=== PATIENT | female | born 1960 | race Caucasian/White ===

== ENCOUNTER → 2016-12-30 | Outpatient (CLI) | payer BC ==
--- NOTE | 2016-12-31 08:48 | MM ---
Reason for exam: screening (asymptomatic). Last mammogram was performed 2 years and 1 month ago. History: Family history of breast cancer in paternal cousin at age 32. Physical Findings: A clinical breast exam by your physician is recommended on an annual basis and results should be correlated with mammographic findings. MG Screening Mammo w CAD Bilateral CC and MLO view(s) were taken. Prior study comparison: November 23, 2014, bilateral MG screening mammo w CAD. July 26, 2012, CAD bilateral diagnostic mammogram. The breast tissue is heterogeneously dense. This may lower the sensitivity of mammography. Finding: There are typically benign round calcifications in both breasts. There is no discrete abnormality. ASSESSMENT: Benign, BI-RAD 2 RECOMMENDATION: Routine screening mammogram of both breasts in 1 year.
== END | disposition home or self-care (01) ==
LOC: RADMAMWWP 13:43
PROVIDERS: ATTEND Family Medicine
DX: Z12.31 Encounter for screening mammogram for malignant neoplasm of breast (principal)

== ENCOUNTER → 2017-12-23 | Outpatient (CLI) | payer BC ==
--- NOTE | 2017-12-23 12:57 | US ---
EXAMINATION TYPE: US gallbladder DATE OF EXAM: 12/23/2017 COMPARISON: NONE CLINICAL HISTORY: 57-year-old female K82.9 Disease of Gallbladder. RUQ pain and N/V x 3 weeks, gets w orse after eating TECHNIQUE: Multiple sonographic images of the right upper quadrant are obtained. FINDINGS: COURT OPERATIONS CLERK NOTES: Difficult and suboptimal study due to patient body habitus EXAM MEASUREMENTS: Liver Length: 16.4 cm Gallbladder Wall: 0.2 cm CBD: 0.3 cm Right Kidney: 10.4 x 5.7 x 5.2 cm Pancreas: Suboptimal visualization of the pancreatic tail secondary to overlying bowel gas Liver: wnl Gallbladder: wnl Evidence for sonographic Garcia's sign: yes CBD: wnl Right Kidney: wnl IMPRESSION: Unremarkable sonographic examination of the right upper quadrant. However, sonographic Garcia sign is reported positive. This may reflect referred pain. If further imaging evaluation of the gallbladder is desired, HIDA scan with ejection fraction can be considered.
== END | disposition home or self-care (01) ==
LOC: RADUSWWP 11:43
PROVIDERS: ATTEND Family Medicine
DX: K82.9 Disease of gallbladder, unspecified (principal)
CPT/HCPCS: 76705

== ENCOUNTER → 2018-01-05 | Outpatient (CLI) | payer BC ==
--- NOTE | 2018-01-05 10:37 | NM ---
Nuclear medicine hepatobiliary scan. HISTORY: Pain. DOSAGE: The patient received 8 ounces of ensure plus and 5.2 mCi of Technetium 99m Choletec. FINDINGS: There is normal hepatic extraction. The gallbladder is seen by 20 minutes. There is bilia ry to bowel clearance by 50 minutes. Ejection fraction is 72%. IMPRESSION: 1. Normal hepatobiliary exam
== END | disposition home or self-care (01) ==
LOC: RADNMMAIN 07:10
PROVIDERS: ATTEND Family Medicine
DX: K82.9 Disease of gallbladder, unspecified (principal); R10.84 Generalized abdominal pain
CPT/HCPCS: 78226; A9537

== ENCOUNTER → 2018-01-14 | Outpatient (CLI) | payer BC ==
--- NOTE | 2018-01-18 08:50 | MM ---
Reason for exam: screening (asymptomatic). Last mammogram was performed 1 year ago. History: Patient is postmenopausal. Family history of breast cancer in paternal cousin at age 32. Physical Findings: A clinical breast exam by your physician is recommended on an annual basis and results should be correlated with mammographic findings. MG 3D Screening Mammo W/Cad Bilateral CC and MLO view(s) were taken. Technologist: Iris Pulliam RT (R)(M) Prior study comparison: December 30, 2016, bilateral MG screening mammo w CAD. November 23, 2014, bilateral MG screening mammo w CAD. There are scattered fibroglandular densities. Focal asymmetry right upper MLO, stable. No significant changes when compared with prior studies. ASSESSMENT: Benign, BI-RAD 2 RECOMMENDATION: Routine screening mammogram of both breasts in 1 year.
== END | disposition home or self-care (01) ==
LOC: RADMAMWWP 08:07
PROVIDERS: ATTEND Family Medicine
DX: Z12.31 Encounter for screening mammogram for malignant neoplasm of breast (principal)
CPT/HCPCS: 77063; 77067

== ENCOUNTER → 2018-08-14 | Outpatient (CLI) | payer BC ==
[2018-08-14 08:43] LABS: Basophils # (A) 0.1 k/uL (0-0.2); Basophils % (A) 1 %; Eosinophils # (A) 0.2 k/uL (0-0.7); Eosinophils % (A) 3 %; HCT 41.2 % (34.0-46.0); HGB 13.5 gm/dL (11.4-16.0); Lymphocytes % (A) 27 %; MCH 27.9 pg (25.0-35.0); MCHC 32.7 g/dL (31.0-37.0); MCV 85.3 fL (80.0-100.0); Mean Platelet Volume 7.7; Monocytes # (A) 0.4 k/uL (0-1.0); Monocytes % (A) 6 %; Neutrophils # (A) 4.5 k/uL (1.3-7.7); Neutrophils % (A) 62 %; Platelet Count 284 k/uL (150-450); RBC 4.83 m/uL (3.80-5.40); RDW 14.6 % (11.5-15.5); WBC 7.4 k/uL (3.8-10.6)
[2018-08-14 17:59] LABS: LDL Cholesterol,Calculated 143.6 mg/dL (0.0-131.0); VLDL Calculation 23.4 mg/dL (5.00-40.00)
[2018-08-14 18:01] LABS: Vitamin D 25 Hydroxy 17.9 ng/mL (30.0-100.0)
[2018-08-14 18:12] LABS: Iron Saturation 20.7 (12.00-45.00)
== END | disposition home or self-care (01) ==
LOC: LABWHC1 08:28
PROVIDERS: ATTEND Physician Assistant Medical
DX: Z00.01 Encounter for general adult medical examination with abnormal findings (principal); E55.9 Vitamin D deficiency, unspecified; E78.2 Mixed hyperlipidemia; R79.89 Other specified abnormal findings of blood chemistry
CPT/HCPCS: 36415; 80061; 82306; 82728; 83540; 83550; 85025

== ENCOUNTER → 2020-02-27 | Outpatient (CLI) | payer BC ==
--- NOTE | 2020-02-27 22:35 | MR ---
EXAMINATION TYPE: MR knee RT wo con DATE OF EXAM: 02/27/2020 COMPARISON: Outside bilateral knee x-ray November 23, 2019. HISTORY: Right knee pain with locking and swelling for a few months. TECHNIQUE: Multiplanar, multisequence images of the knee is performed without IV contrast. FINDINGS: Exam slightly suboptimal due to patient's large body habitus. MEDIAL MENISCUS: Medial extrusion medial meniscus images. Some increased linear signal in the anterio r and posterior horns is present. Anterior aspect posterior horn shows irregular signal and fraying e xtending to articular surface sagittal image 10. Corresponding coronal image 21 shows extension of th e regular signal to superior and inferior articular surfaces. LATERAL MENISCUS: Anterior and posterior horns are intact without tear. CRUCIATE LIGAMENTS: The anterior and posterior cruciate ligaments are intact and unremarkable. COLLATERAL LIGAMENTS: The medial collateral ligament and lateral collateral ligament complex are inta ct and unremarkable. EXTENSOR MECHANISM: Visualized quadriceps and patellar tendons are intact. EFFUSION: Small suprapatellar joint effusion. POPLITEAL CYST: No popliteal/chery cyst. TRICOMPARTMENT SPACES: Mild tricompartment joint space loss with mild central spurring. CARTILAGE: Some chondromalacia patella with thinning of articular cartilage along the posterior rangel lar pole. BONE MARROW SIGNAL: No focal abnormal marrow signal is appreciated. OTHER: No additional significant abnormality is appreciated. IMPRESSION: 1. Complex full-thickness tear central aspect posterior horn medial meniscus likely extending into johanna dy. 2. Intrasubstance tear anterior horn of medial meniscus. 3. [id number] tricompartmental degenerative changes as detailed above. 4. Small suprapatellar joint effusion.
== END | disposition home or self-care (01) ==
LOC: RADMRIMAIN 17:58
PROVIDERS: ATTEND Orthopaedic Surgery
DX: S83.231A Complex tear of medial meniscus, current injury, right knee, initial encounter (principal); S83.241A Other tear of medial meniscus, current injury, right knee, initial encounter; M17.11 Unilateral primary osteoarthritis, right knee

== ENCOUNTER → 2020-03-08 | Outpatient (CLI) | payer BC ==
[2020-03-08 10:41] LABS: Basophils # (A) 0.1 k/uL (0-0.2); Basophils % (A) 1 %; Eosinophils # (A) 0.2 k/uL (0-0.7); Eosinophils % (A) 2 %; HCT 41.6 % (34.0-46.0); HGB 12.9 gm/dL (11.4-16.0); Lymphocytes # (A) 2.1 k/uL (1.0-4.8); Lymphocytes % (A) 24 %; MCH 27.1 pg (25.0-35.0); MCHC 31.1 g/dL (31.0-37.0); MCV 87.1 fL (80.0-100.0); Monocytes # (A) 0.5 k/uL (0-1.0); Monocytes % (A) 5 %; Neutrophils # (A) 5.8 k/uL (1.3-7.7); Neutrophils % (A) 66 %; Platelet Count 290 k/uL (150-450); RBC 4.77 m/uL (3.80-5.40); RDW 13.9 % (11.5-15.5); WBC 8.7 k/uL (3.8-10.6)
[2020-03-08 10:52] LABS: Potassium 4.6 mmol/L (3.5-5.1)
== END | disposition home or self-care (01) ==
LOC: LABPAT 09:32
PROVIDERS: ATTEND Orthopaedic Surgery
DX: M23.91 Unspecified internal derangement of right knee (principal)
CPT/HCPCS: 36415; 80051; 85025; 93005

== ENCOUNTER 2020-03-22 12:45 | Day surgery (SDC) | payer BC ==
[2020-03-20 09:44] VITALS: BMI 51.5
--- NOTE | 2020-03-21 14:30 | HP ---
HISTORY AND PHYSICAL DATE OF SURGERY: 03/22/2020 Bertha Gayle is a 59-year-old patient seen with progressive right knee pain. We discussed options for treatment. She elected to proceed with right knee arthroscopy. Consent regarding the procedure was obtained. PAST MEDICAL HISTORY: Hypertension. PAST SURGICAL HISTORY: Tubal ligation. DAILY MEDICATIONS: Losartan, diazepam. PAST MEDICAL HISTORY: Hyperlipidemia, hypertension. ALLERGIES: None. SOCIAL HISTORY: Smokes 1/2 pack cigarettes daily. PHYSICAL EVALUATION OF THE RIGHT SHOULDER: Range of motion is 0-120. There is a mild effusion. Tenderness along the medial joint line positive medial Sherri's. There is some crepitus along the medial compartment. Range of motion. Ligaments are stable. Hip rotation without pain. Her distal neurovascular exam is intact. . RIGHT KNEE RADIOGRAPHS: Revealed mild osteoarthritic changes. Right knee MRI revealed a complex medial meniscal tear, osteoarthritis and joint effusion. IMPRESSION: 1. Internal derangement, right knee with medial meniscal tear. 2. Right knee osteoarthritis. 3. Hypertension. 4. Tobacco use. PLAN: Right knee arthroscopy with partial meniscectomy, partial synovectomy and debridement. MMODL / IJN: [id number] /
[~2020-03-22 12:45] MED LIST: DEXAMETHASONE SOD PHOSPHATE 10 MG/ML 1 ML VIAL IV ONE; LACTATED RINGERS 1,000 ML IV SCH; LIDOCAINE 1% (10MG/ML) FOR IV START INTRADERMA PRN; ceFAZolin 3 GM in SODIUM CHLORIDE 0.9% 100 ML IVPB ONE
[2020-03-22] MEDS ORDERED: ONDANSETRON 4 MG/2 ML VIAL ONE (13:10)
[2020-03-22] MEDS ORDERED: MIDAZOLAM 2 MG/2 ML VIAL IVP ONE (13:28)
[2020-03-22] MEDS ORDERED: MIDAZOLAM 2 MG/2 ML VIAL ONE (14:49)
[2020-03-22] MEDS ORDERED: LIDOCAINE 1% INJ 10MG/ML (20 ML MDV) ONE (14:49)
[2020-03-22] MEDS ORDERED: SUCCINYLCHOLINE CHLORIDE 100 MG/5 ML SYR IV ONE (14:49)
[2020-03-22] MEDS ORDERED: PROPOFOL 10 MG/ML 20 ML VIAL IV ONE (14:49)
[2020-03-22] MEDS ORDERED: fentaNYL (PF) 50 MCG/ML 2 ML AMP ONE (14:49)
[2020-03-22] MEDS ORDERED: BUPIVACAINE (PF) 0.25% 30 ML VIAL INTRAARTIC ONE (15:13)
--- NOTE | 2020-03-22 15:43 | P.OP ---
Date of Procedure: 03/22/20 Preoperative Diagnosis: Internal derangement right knee Postoperative Diagnosis: 1. Tear medial meniscus right knee 2. Grade 2 chondromalacia medial femoral condyle right knee 3. Grade 2/3 chondromalacia patellofemoral joint right knee 4. Reactive synovitis medial, lateral and suprapatellar compartments right knee Procedure(s) Performed: 1. Arthroscopic partial medial meniscectomy right knee 2. Arthroscopic chondroplasty medial femoral condyle right knee 3. Arthroscopic chondroplasty patellofemoral joint right knee 4. Arthroscopic partial synovectomy medial, lateral and suprapatellar compartments right knee Anesthesia: ROBERTO, local Surgeon: Parth Magdaleno Estimated Blood Loss (ml): 7 Pathology: none sent Condition: stable Disposition: PACU Indications for Procedure: 59-year-old patient seen with progressive right knee pain. After treatment options were discussed with her, she elected to proceed with arthroscopy. Operative Findings: See description of procedure Description of Procedure: Patient was taken to the operative suite. Patient underwent a general anesthetic by the department of anesthesia. Patient was given preoperative antibiotics. The right lower extremity was placed in a well-padded arthroscopic leg caputo. The right leg was prepped and draped in the normal sterile orthopedic fashion. A lateral parapatellar and suprapatellar incision was made. Trochars were inserted. Arthroscopy was initiated. Suprapatellar pouch revealed diffuse thick reactive synovitis. The patellofemoral joint appeared to articulate congruently. There was grade 2/3 chondromalacia of the patella as well as the femoral sulcus. The femoral sulcus appeared be more grade 3 chondromalacia diffusely.. The scope was guided into the medial gutter. No loose bodies or plica were identified. The scope was then guided into the medial compartment. A medial parapatellar incision was made. Trocar inserted followed by probe. There was a complex tear involving the posterior horn medial meniscus. There were grade 2 chondromalacia changes of the medial femoral condyle with some osteochondral flap tears present. There was thick reactive synovitis anteriorly. I performed a partial medial meniscectomy. I performed a chondroplasty of the medial femoral condyle. I performed a partial synovectomy decompressing reactive synovitis. The residual meniscus was probed and found to be stable. The residual osteochondral surface of the medial femoral condyle was stable. There was good decompression of the synovitis. Scope and probe were then guided into the intercondylar notch. Cruciates were identified, probed and found to be stable. The scope and probe were then guided into lateral compartment. Lateral meniscus was probed and found to be stable. There was no significant chondromalacia involving lateral compartment. There was some reactive synovitis anteriorly. A motorize shaver was introduced and a partial synovectomy was performed. There was good decompression of synovitis. The scope was in guided back into the suprapatellar compartment. I introduced a motorized shaver into the suprapatellar compartment. I debrided some piecemeal fragments of meniscus I encountered. I performed a chondroplasty of the patellofemoral joint getting down to stable osteochondral tissue. I performed a partial synovectomy decompressing reactive synovitis. The shaver was removed. The residual osteochondral surface of the patellofemoral joint was stable. There was again grade 2/3 chondromalacia changes there. There was good decompression of synovitis. I now took one more look around the entire knee, no residual debris. Instruments were now removed from the joint. The joint was infiltrated with .25% Marcaine. Steri-Strips were applied to the portal sites. Sterile dressings were applied. The patient was placed into a YOLY hose. No tourniquet was utilized. The patient was awakened, transferred to a bed and taken to recovery stable satisfactory condition.
[2020-03-22 15:48] VITALS: TEMP 98
[2020-03-22] MEDS ORDERED: HYDROmorphone 0.5 MG/0.5 ML SYRINGE IVP ONE (15:55)
[2020-03-22 16:00] VITALS: RESP 16
[2020-03-22 17:00] VITALS: BP 138/83; PULSE 66
== END 2020-03-22 17:15 | disposition home or self-care (01) ==
LOC: OR 12:45
PROVIDERS: ATTEND Orthopaedic Surgery
DX: M23.221 Derangement of posterior horn of medial meniscus due to old tear or injury, right knee (principal); M17.11 Unilateral primary osteoarthritis, right knee; M94.261 Chondromalacia, right knee; M65.861 Other synovitis and tenosynovitis, right lower leg; I10 Essential (primary) hypertension; E78.5 Hyperlipidemia, unspecified; F17.210 Nicotine dependence, cigarettes, uncomplicated; E66.01 Morbid (severe) obesity due to excess calories; Z79.899 Other long term (current) drug therapy; Z98.51 Tubal ligation status; Z68.43 Body mass index [BMI] 50.0-59.9, adult
CPT/HCPCS: 29881; J2250; J1100; J0690; J2405; J2001; J3010; J0330; J2704; J1170

== ENCOUNTER → 2020-12-06 | Outpatient (CLI) | payer BC ==
--- NOTE | 2020-12-10 08:55 | MM ---
Reason for exam: screening (asymptomatic). Last mammogram was performed 2 years and 11 months ago. History: Patient is postmenopausal. Family history of breast cancer in paternal cousin at age 32. Physical Findings: A clinical breast exam by your physician is recommended on an annual basis and results should be correlated with mammographic findings. MG Screening Mammo w CAD Bilateral CC and MLO view(s) were taken. Prior study comparison: January 14, 2018, bilateral MG 3d screening mammo w/cad. December 30, 2016, bilateral MG screening mammo w CAD. There are scattered fibroglandular densities. Finding: There are stable typically benign grouped/clustered calcifications in the upper outer quadrant, posterior middle position. Magnification view to evaluate. No significant changes in finding since January 14, 2018. ASSESSMENT: Incomplete: need additional imaging evaluation, BI-RAD 0 RECOMMENDATION: Special view mammogram of the left breast. [facility] will attempt to contact patient to return for supplemental views.
== END | disposition home or self-care (01) ==
LOC: RADMAMWWP 14:33
PROVIDERS: ATTEND Family Medicine
DX: Z12.31 Encounter for screening mammogram for malignant neoplasm of breast (principal); Z78.0 Asymptomatic menopausal state; Z80.3 Family history of malignant neoplasm of breast
CPT/HCPCS: 77067

== ENCOUNTER → 2020-12-11 | Outpatient (CLI) | payer BC ==
--- NOTE | 2020-12-11 09:48 | MM ---
Reason for exam: additional evaluation requested from abnormal screening. Last mammogram was performed less than 1 month ago. History: Patient is postmenopausal. Family history of breast cancer in paternal cousin at age 32. Physical Findings: Nurse did not find any significant physical abnormalities on exam. MG Work Up Mamm w CAD LT CC with magnification, LM with magnification, and LM view(s) were taken of the left breast. Prior study comparison: December 06, 2020, bilateral MG screening mammo w CAD. January 14, 2018, bilateral MG 3d screening mammo w/cad. Faint amorphous punctate calcifications 2 o'clock left breast 1.1cm from nipple, suspicious, best seen on CC. These results were verbally communicated with the patient and result sheet given to the patient on 12/11/20. ASSESSMENT: Suspicious, BI-RAD 4 RECOMMENDATION: Stereotactic core biopsy of the left breast. Called Dr. Montana's office with mammographic findings and has scheduled an appointment for the patient for 12/13/20 at 11:[address] Duval. PRELIMINARY REPORT CALLED AND FAXED TO DR. DUVAL ON 12/11/20.
== END | disposition home or self-care (01) ==
LOC: RADMAMWWP 08:09
PROVIDERS: ATTEND Family Medicine
DX: R92.8 Other abnormal and inconclusive findings on diagnostic imaging of breast (principal); Z78.0 Asymptomatic menopausal state; Z80.3 Family history of malignant neoplasm of breast
CPT/HCPCS: 77065

== ENCOUNTER → 2020-12-31 | Day surgery (SDC) | payer BC ==
[2020-12-31 07:15] VITALS: BP 120/79; PULSE 78; RESP 16; TEMP 97.8
--- NOTE | 2020-12-31 08:52 | P.PCN ---
Date of Procedure: 12/31/20 Preoperative Diagnosis: Microcalcifications left breast Postoperative Diagnosis: Microcalcifications left breast Procedure(s) Performed: Left stereotactic breast biopsy with marker placement Anesthesia: local Surgeon: Kathrine Duval Pathology: other Condition: stable Disposition: other (discharge) Indications for Procedure: Abnormal mammogram Description of Procedure: Patient presented with a vague area of microcalcification seen on her mammogram. She's taken to the stereotactic suite where the area of concern as marked by the radiologist. The breasts prep. Local anesthetic was instilled in the skin and breast tissue. The needle is advanced the appropriate depth. Pre-fire films were obtained. The needle was then fired and post-fire films were available. This showed the needle to be in good position. Multiple vacuum- assisted automated cores were then obtained. Specimen mammography showed multiple calcifications present. The tissue marker is then placed and the needle was withdrawn. There was noted to be some oozing from the skin which appeared to be venous. This was controlled with a 3-0 Vicryl mattress suture. A dressing was applied. She tolerated the procedure without difficulty and will be seen in the office for pathology report
--- NOTE | 2020-12-31 09:46 | MM ---
EXAMINATION TYPE: MG stereo VAD BX LT DATE OF EXAM: 12/31/2020 COMPARISON: 12/11/2020 CLINICAL HISTORY: Left breast calcifications TECHNIQUE: Stereotactic guided core biopsy of left breast. FINDINGS: The procedure of stereotactic guided core biopsy was explained to the patient. By report the benefits, alternatives, and risks were discussed. An informed consent was then obtained. The shortness pathway for biopsy was chosen. Shortness pathway was above approach. I performed the localization, then surgeon, Dr. Duval performed the remainder of the procedure. No radiologist was present for the procedure. A vacuum assisted biopsy gun was used to obtain multiple core samples. By report, the patient tolerated the procedure well without any immediate complication. The patient was kept in the radiology department for short stay after the procedure and then discharged home in stable condition. Targeted calcifications are identified in specimen mammogram. Post biopsy mammogram shows the clip to appear in satisfactory position relative to the targeted area of concern on the preprocedure images. IMPRESSION: SUCCESSFUL, UNCOMPLICATED STEREOTACTIC GUIDED CORE BIOPSY OF AREA OF CONCERN IN THE left BREAST, FULL PATHOLOGY RESULTS TO FOLLOW. Pathology Results: High Risk LEFT BREAST, STEREOTACTIC CORE BIOPSY: Focal flat epithelial atypia (FEA) and columnar cell change/columnar cell hyperplasia with calcifications, in a background of fibrocystic changes. Focal atypical lobular hyperplasia (ALH). Recommendation Surgical consult of the left breast. SHAHNAZ
== END ==
LOC: RADMAMWWP 06:57
PROVIDERS: ATTEND Surgery
DX: R92.1 Mammographic calcification found on diagnostic imaging of breast (principal)
CPT/HCPCS: 88305

== ENCOUNTER 2021-01-14 10:17 | Day surgery (SDC) | payer BC ==
[2021-01-11 08:40] VITALS: BMI 54.9
[~2021-01-14 10:17] MED LIST changes: -DEXAMETHASONE SOD PHOSPHATE 10 MG/ML 1 ML VIAL IV ONE; +DEXAMETHASONE SOD PHOSPHATE 4 MG/ML 1 ML VIAL IV ONE; +HYDROmorphone 0.5 MG/0.5 ML SYRINGE IVP PRN; -LIDOCAINE 1% (10MG/ML) FOR IV START INTRADERMA PRN; +MIDAZOLAM 2 MG/2 ML VIAL IV PRN; +ONDANSETRON 4 MG/2 ML VIAL IVP ONE; +Pre Op ABX Message 1 EACH MISC MISCELLANE ONE; +SCOPOLAMINE 1.5MG/72HR PATCH TRANSDERM ONE; -ceFAZolin 3 GM in SODIUM CHLORIDE 0.9% 100 ML IVPB ONE
[2021-01-14] MEDS ORDERED: ALPRAZolam 0.5 MG TAB PO ONE (10:36)
[2021-01-14] MEDS ORDERED: ALPRAZolam 0.5 MG TAB ONE (10:36)
[2021-01-14] MEDS ORDERED: LIDOCAINE 1% (10MG/ML) FOR IV START INTRADERMA ONE (10:49)
[2021-01-14] MEDS ORDERED: LIDOCAINE 1% INJ 10MG/ML (20 ML MDV) SQ ONE (11:53)
[2021-01-14] MEDS ORDERED: fentaNYL (PF) 50 MCG/ML 2 ML AMP ONE (12:27)
[2021-01-14] MEDS ORDERED: PROPOFOL 10 MG/ML 20 ML VIAL IV ONE (12:27)
[2021-01-14] MEDS ORDERED: SUCCINYLCHOLINE CHLORIDE VIAL 200 MG/10 ML VIAL IV ONE (12:27)
[2021-01-14] MEDS ORDERED: MIDAZOLAM 2 MG/2 ML VIAL ONE (12:27)
[2021-01-14] MEDS ORDERED: LIDOCAINE 1% INJ 10MG/ML (20 ML MDV) ONE (12:27)
[2021-01-14] MEDS ORDERED: BUPIVACAINE (PF) 0.25% 30 ML VIAL SQ ONE ×3 (12:49→12:50)
[2021-01-14] MEDS ORDERED: LIDOCAINE 1%-EPI 1:100,000 20 ML VIAL SQ ONE ×3 (12:49)
--- NOTE | 2021-01-14 13:15 | P.OP ---
Date of Procedure: 01/14/21 Preoperative Diagnosis: Flat epithelial atypia left breast Postoperative Diagnosis: Flat epithelial atypia left breast Procedure(s) Performed: Needle localized excisional breast biopsy Anesthesia: MATTHEWA Surgeon: Kathrine Duval Estimated Blood Loss (ml): 3 Pathology: other Condition: stable Disposition: PACU Indications for Procedure: The patient had a stereotactic breast biopsy done showing some flat epithelial atypia Description of Procedure: The patient was taken to the [facility] where a needle localization was performed. She is then taken to the OR where she is prepped and draped in the usual sterile manner under a general endotracheal anesthetic. Local anesthetic was instilled into the skin and breast tissue. A small skin incision was made. Dissection was carried out to the breast tissue around the end of the localizing wire. That tissue is sharply excised. The wire is brought through the skin into the incision. The specimen is then marked and sent for specimen mammography. Mammography showed the area of concern due to been excised. Small bleeding points were controlled with electrocautery. The skin was then closed with 4-0 Vicryl in a subcuticular manner. Steri-Strips and dressings were applied. She tolerated the procedure without difficulty and was taken to recovery room in satisfactory condition. According to or personnel, all counts were correct. Plan - Discharge Summary Discharge Rx Participant: No New Discharge Prescriptions: New traMADol HCL 1 - 2 mg PO Q6HR PRN #10 tablet PRN Reason: Pain No Action Losartan [Cozaar] 50 mg PO QAM Discharge Medication List Losartan [Cozaar] 50 mg PO QAM 12/18/20 [History] traMADol HCL 1 - 2 mg PO Q6HR PRN #10 tablet 01/14/21 [Rx] Follow up Appointment(s)/Referral(s): Kathrine Duval DO [Doctor of Osteopathic Medicine] - 1 Week Patient Instructions/Handouts: *Surgery [facility] - Scopalamine Patch Instructions Activity/Diet/Wound Care/Special Instructions: Wear a while supporting bra. Ice to the incision for 24-48 hours. Keep the dressing on until Thursday, then it may be removed and you may shower. Expect some bruising. Call if questions or concerns. Discharge Disposition: HOME SELF-CARE
[2021-01-14 13:29] VITALS: TEMP 96.9
[2021-01-14 14:01] VITALS: RESP 16
[2021-01-14 14:33] VITALS: BP 119/70; PULSE 67
--- NOTE | 2021-01-14 18:57 | MM ---
EXAMINATION TYPE: MG pre op needle loc LT, MG surgical specimen LT DATE OF EXAM: 01/14/2021 COMPARISON: 12/11/2020, 12/06/2020 CLINICAL HISTORY: 60-year-old female biopsy-proven FEA and ALH. Referred for needle localization for excision. TECHNIQUE: Needle localization with wire placement and surgical excision of area of concern in the 2: 00 left breast. FINDINGS: The procedure of needle localization with wire placement and than surgical excision was exp lained to the patient. Benefits, alternatives, and risks were discussed. An informed consent was th en obtained. The shortest pathway for procedure was chosen. Shortest pathway was a lateral approach. The overlyin g skin was prepped and draped in usual sterile fashion. Lidocaine was used as anesthetic into the sk in and subcutaneous tissue up to the level of area of concern. A 9 cm Kopans needle was used. It wa s placed via a lateral approach under mammographic guidance. Subsequent 90 degrees mammogram show th e needle to be in satisfactory position relative to the targeted area. At this point, wire was place d and the needle was withdrawn. The wire was fixed to patient's skin. Images were marked for surgeo n. The patient tolerated the procedure well without any immediate complication. The patient was kept in the radiology department for short stay after the procedure and then taken to surgery for surgical e xcision. Targeted clip and wire are identified in specimen mammogram. The patient was kept in hospit al for short stay after the procedure and then discharged home in stable condition. IMPRESSION: Successful, uncomplicated needle localization with wire placement and surgical excision of the latera l left breast biopsy clip at the site of biopsy-proven high risk lesion, FEA and ALH. Full pathology results to follow.
== END 2021-01-14 14:48 | disposition home or self-care (01) ==
LOC: OR 10:17
PROVIDERS: ATTEND Surgery
DX: N60.22 Fibroadenosis of left breast (principal); N60.92 Unspecified benign mammary dysplasia of left breast; I10 Essential (primary) hypertension; R73.03 Prediabetes
CPT/HCPCS: 19281; 19125; 76098; J2250; J0330; J1100; J2405; J2001; J3010; J2704; 88307

== ENCOUNTER → 2021-04-05 | Outpatient (CLI) | payer BC ==
--- NOTE | 2021-04-05 17:05 | US ---
EXAMINATION TYPE: US venous doppler duplex LE LT DATE OF EXAM: 04/05/2021 4:26 PM COMPARISON: NONE CLINICAL HISTORY: R60.0 Localized edema, M79.605 Pain in left leg. left leg edema SIDE PERFORMED: left TECHNIQUE: The lower extremity deep venous system is examined utilizing real time linear array sonog justin with graded compression, doppler sonography and color-flow sonography. VESSELS IMAGED: Common Femoral Vein Deep Femoral Vein Greater Saphenous Vein * Femoral Vein Popliteal Vein Small Saphenous Vein * Proximal Calf Veins (* superficial vessels) Left Leg: technical limitations due to patient's body habitus. unable to visualize lower femoral vei n. no evidence of DVT within visualized portions IMPRESSION: Technically limited examination although there is no evidence for DVT.
== END | disposition home or self-care (01) ==
LOC: RADUSWWP 16:01
PROVIDERS: ATTEND Family Medicine
DX: R60.0 Localized edema (principal)

== ENCOUNTER → 2021-09-09 | Outpatient (CLI) | payer BC ==
--- NOTE | 2021-09-10 08:44 | MM ---
Reason for exam: additional evaluation requested from prior study. Last mammogram was performed 9 months ago. History: Patient is postmenopausal and has history of high-risk lesion on a previous biopsy at age 60. Family history of breast cancer in paternal cousin at age 32. High risk MG pre op needle loc LT of the left breast, January 14, 2021. High risk MG stereo VAD BX LT of the left breast, December 31, 2020. Physical Findings: A clinical breast exam by your physician is recommended on an annual basis and results should be correlated with mammographic findings. MG 3D Diag Mammo W/Cad LT CC and MLO view(s) were taken of the left breast. Prior study comparison: December 11, 2020, left breast MG work up mamm w CAD LT. December 06, 2020, bilateral MG screening mammo w CAD. There are scattered fibroglandular densities. Post excisional changes upper outer quadrant left breast. No recurrent calcifications. Upper outer quadrant periareolar focal asymmetry disperses on CC, less defined on lateral, similar on spot MLO view, 6 month follow up recommended. 6 month follow up to assess any evolving post excisional changes. ASSESSMENT: Probably benign, BI-RAD 3 RECOMMENDATION: Follow-up diagnostic mammogram of both breasts in 3 months. Back on schedule.
== END | disposition home or self-care (01) ==
LOC: RADMAMWWP 13:48
PROVIDERS: ATTEND Surgery
DX: R92.8 Other abnormal and inconclusive findings on diagnostic imaging of breast (principal); Z78.0 Asymptomatic menopausal state; Z80.3 Family history of malignant neoplasm of breast
CPT/HCPCS: 77061; 77065

== ENCOUNTER → 2022-04-05 | Outpatient (CLI) | payer BC ==
[2022-04-05 12:54] LABS: Basophils # (A) 0.06 X 10*3/uL (0.00-0.10); Basophils % (A) 0.7 %; Eosinophils % (A) 2.4 %; HCT 41.7 % (37.2-46.3); HGB 12.9 g/dL (12.0-15.0); Immature Grans, Automated 0.2 %; Lymphocytes # (A) 2.53 X 10*3/uL (0.90-5.00); MCH 27.3 pg (27.0-32.0); MCHC 30.9 g/dL (32.0-37.0); MCV 88.2 fL (80.0-97.0); Mean Platelet Volume 11.6 fL (9.5-12.2); Monocytes # (A) 0.74 X 10*3/uL (0.20-1.00); Monocytes % (A) 8.8 %; NRBC Per 100 WBC 0 /100 WBCS (0.0-0.0); Neutrophils # (A) 4.87 X 10*3/uL (1.80-7.70); Neutrophils % (A) 57.9 %; Platelet Count 290 X 10*3/uL (140-440); RBC 4.73 X 10*6/uL (4.10-5.20); RDW 14.9 % (11.5-14.5); WBC 8.42 X 10*3/uL (4.50-10.00)
[2022-04-05 14:12] LABS: ALT 21 U/L (8-44); AST 19 U/L (13-35); African American GFR (CKD) 111.8 (60.0-200.0); Albumin/Globulin Ratio 1.34 (1.60-3.17); Alkaline Phosphatase 93 U/L (41-126); BUN/Creat Ratio 32.53 Ratio (12.00-20.00); Blood Urea Nitrogen 21.6 mg/dL (9.0-27.0); Calcium 9.2 mg/dL (8.7-10.3); Carbon Dioxide 25.3 mmol/L (20.0-27.5); Chloride 103 mmol/L (96-109); Chol/HDL Ratio 3.75 Ratio; Globulin 2.9 g/dL (1.6-3.3); Glucose 115 mg/dL (70-110); LDL Cholesterol,Calculated 143.8 mg/dL (0.0-131.0); Non-African American GFR(CKD) 96.5 (60.0-200.0); Potassium 4.7 mmol/L (3.5-5.5); Sodium 139 mmol/L (135-145); Total Protein 6.9 g/dL (6.2-8.2)
== END | disposition home or self-care (01) ==
LOC: LABWHC1 08:05
PROVIDERS: ATTEND Family Medicine
DX: Z00.00 Encounter for general adult medical examination without abnormal findings (principal); I10 Essential (primary) hypertension; E03.9 Hypothyroidism, unspecified; E55.9 Vitamin D deficiency, unspecified; E78.2 Mixed hyperlipidemia; N32.81 Overactive bladder
CPT/HCPCS: 36415; 80053; 80061; 82306; 84439; 84443; 85025

== ENCOUNTER → 2022-09-08 | Outpatient (CLI) | payer BC ==
--- NOTE | 2022-09-08 09:58 | BD ---
EXAMINATION TYPE: Axial Bone Density DATE OF EXAM: 09/08/2022 CLINICAL HISTORY: 62 years old Female. ICD-10 CODE: E55.9 VIT D DEF, UNSPECIFIED Height: 63.5 Weight: 294.5 FRAX RISK QUESTIONS: Alcohol (3 or more units per day): no Family History (Parent hip fracture): no Glucocorticoids (More than 3mos): no History of Fracture in Adulthood: no Secondary Osteoporosis: 1. Type 1 Diabetes: no 2. Hyperthyroidism: no 3. Menopause before 45: no 4. Malnutrition: no 5. Chronic liver disease: no Rheumatoid Arthritis: no Current Tobacco Use: no RISK FACTORS HISTORY OF: Hip Fracture (Right/Left): no Spine Fracture: no History of Wrist Fracture: no Surgery to Spine/Hip(right/left)/Wrist (right/left): no Family History of Osteoporosis: Sister Active: yes Diet low in dairy products/other sources of calcium: no Postmenopausal woman: no Take estrogen and/or progesterone medications: no Lost more than 2 inches in height since high school: no Frequent falls: no Poor Health: no Hyperparathyroidism: no Adrenal Insufficiency: no MEDICATIONS: Prednisone or other steroids: no Thyroid Medications: no Osteoporosis Medications: no Additional Medications: BP Meds, Additional History: EXAM MEASUREMENTS: Bone mineral densitometry was performed using the [employer] Management System. Bone mineral density as measured about the Lumbar spine is: ----- L1-L4(G/cm2): 1.172 T Score Values are as follows: ----- L1: 1.0 ----- L2: 0.1 ----- L3: -0.3 ----- L4: -1.0 ----- L1-L4: -0.1 Z Score Values are as follows: ----- L1: 1.0 ----- L2: 0.2 ----- L3: -0.3 ----- L4: -0.9 ----- L1-L4: 0.3 Baseline Study Bone mineral density about the R hip (g/cm2): 1.058 Bone mineral density about the L hip (g/cm2): 1.109 T Score values are as follows: -----R Neck: -0.8 -----L Neck: 0.3 -----R Total: 0.4 -----L Total: 0.8 Z Score values are as follows: -----R Neck: -0.3 -----L Neck: 0.8 -----R Total: 0.5 -----L Total: 0.9 Baseline Study FRAX%s: The graph provided illustrates a 5.5% chance for a major osteoporotic fx and a 0.2% chance fo r the hips probability for fx in 10 years time. IMPRESSION: Normal (Values between +1 and -1 indicate normal bone mass). Consider repeating this study in 5 year s or sooner if there is some new clinical indication. NOTE: T-SCORE=SD OF THE YOUNG ADULT MEAN.
== END | disposition home or self-care (01) ==
LOC: RADBDWWP 07:12
PROVIDERS: ATTEND Family Medicine
DX: E55.9 Vitamin D deficiency, unspecified (principal)
CPT/HCPCS: 77080

== ENCOUNTER → 2023-04-28 | Outpatient (CLI) | payer BC ==
--- NOTE | 2023-04-28 13:20 | US ---
EXAMINATION TYPE: US abdomen complete DATE OF EXAM: 04/28/2023 COMPARISON: Gallbladder ultrasound 12/23/2018 CLINICAL INDICATION: Female, 62 years old with history of R10.11 RIGHT UPPER QUADRANT PAIN; RUQ painl imitations due to body habitus TECHNIQUE: Multiple sonographic images of the abdomen are obtained. FINDINGS: EXAM MEASUREMENTS: Liver Length: 18.3 cm Gallbladder Wall: .3 cm CBD: .5 cm Spleen: 9.8 cm Right Kidney: 10.3 x 5.1 x 5.5 cm Left Kidney: 12.2 x 5.0 x 4.5 cm ACCOUNT CLASSIFICATION CLERK NOTES: Pancreas: Tail obscured by overlying bowel gas Liver: Increased attenuation Gallbladder: No stones seen Evidence for sonographic Garcia's sign: No CBD: wnl Spleen: wnl Right Kidney: wnl Left Kidney: wnl Upper IVC: wnl Abd Aorta: wnl The liver demonstrates diffuse increased attenuation which limits sensitivity for interbody masses. N o gross evidence of mass. The intrahepatic portion of the IVC and proximal abdominal aorta are within normal limits. There is no evidence of cholelithiasis. Common bile duct is unremarkable. The visu alized portions of the pancreas are homogenous. The tail is obscured by overlying bowel gas. The spl een is unremarkable. Kidneys are symmetric and free of hydronephrosis. No renal lesions are seen. IMPRESSION: 1. No ultrasound evidence for an acute process. 2. Hepatic steatosis.
== END | disposition home or self-care (01) ==
LOC: RADUSWWP 12:38
PROVIDERS: ATTEND Family Medicine
DX: K76.0 Fatty (change of) liver, not elsewhere classified (principal); R10.11 Right upper quadrant pain
CPT/HCPCS: 76700

== ENCOUNTER → 2023-06-20 | Outpatient (CLI) | payer BC ==
[2023-06-20 13:39] LABS: Basophils # (A) 0.08 X 10*3/uL (0.00-0.10); Basophils % (A) 0.9 %; Eosinophils # (A) 0.21 X 10*3/uL (0.04-0.35); Eosinophils % (A) 2.3 %; HCT 40.8 % (37.2-46.3); Lymphocytes # (A) 2.46 X 10*3/uL (0.90-5.00); Lymphocytes % (A) 26.8 %; MCH 27.8 pg (27.0-32.0); MCHC 31.9 g/dL (32.0-37.0); MCV 87.2 FL (80.0-97.0); Mean Platelet Volume 11.4 FL (9.5-12.2); Monocytes % (A) 7.6 %; NRBC Per 100 WBC 0 X 10*3/uL (0.00-0.01); Neutrophils % (A) 62.2 %; Platelet Count 322 X 10*3/uL (140-440); RBC 4.68 X 10*6/uL (4.10-5.20); RDW 14.6 % (11.5-14.5); WBC 9.17 X 10*3/uL (4.50-10.00)
[2023-06-20 15:38] LABS: BUN/Creat Ratio 25.71 Ratio (12.00-20.00); Chol/HDL Ratio 4.08 Ratio; Glucose 119 mg/dL (70-110); LDL Cholesterol,Calculated 166.9 mg/dL (0.0-131.0)
[2023-06-20 15:39] LABS: ALT 21 U/L (8-44); AST 19 U/L (13-35); Albumin/Globulin Ratio 1.18 Ratio (1.60-3.17); Alkaline Phosphatase 85 U/L (41-126); Calcium 9.6 mg/dL (8.7-10.3); Carbon Dioxide 26.2 mmol/L (21.6-31.8); Chloride 101 mmol/L (96-109); Globulin 3.4 g/dL (1.6-3.3); Potassium 5.1 mmol/L (3.5-5.5); Sodium 138 mmol/L (135-145); Total Bilirubin 0.4 mg/dL (0.3-1.2); Total Protein 7.4 g/dL (6.2-8.2)
== END | disposition home or self-care (01) ==
LOC: LABWHC1 08:23
PROVIDERS: ATTEND Family Medicine
DX: Z00.00 Encounter for general adult medical examination without abnormal findings (principal)
CPT/HCPCS: 36415; 80053; 80061; 82306; 84439; 84443; 85025

== ENCOUNTER → 2023-09-10 | Outpatient (CLI) | payer BC ==
--- NOTE | 2023-09-10 11:09 | US ---
EXAMINATION TYPE: US thyroid st tissue head/neck DATE OF EXAM: 09/10/2023 COMPARISON: NONE CLINICAL INDICATION: Female, 63 years old with history of R22.1 LOCAL SWELLING MASS LUMP; Patient sta sharon she has right neck pain x 1 day Right neck submandibular: appears wnl IMPRESSION: No acute process is detected.
== END | disposition home or self-care (01) ==
LOC: RADUSWWP 10:37
PROVIDERS: ATTEND Family Medicine
DX: R22.1 Localized swelling, mass and lump, neck (principal); M54.2 Cervicalgia
CPT/HCPCS: 76536

== ENCOUNTER 2023-10-20 04:26 | Emergency (ER) | payer BC ==
--- NOTE | 2023-10-20 05:19 | XR ---
EXAMINATION TYPE: XR chest 2V DATE OF EXAM: 10/20/2023 COMPARISON: Prior chest x-ray March 15, 2010 HISTORY: Cough. TECHNIQUE: Frontal and lateral views of the chest are obtained. FINDINGS: There is no suspicious focal air space opacity, pleural effusion, or pneumothorax seen. T he cardiac silhouette size remains within normal limits. The osseous structures are intact. IMPRESSION: No acute pulmonary infiltrate.
--- NOTE | 2023-10-20 05:30 | ED ---
SOB HPI - General Source: patient, RN notes reviewed, old records reviewed Mode of arrival: ambulatory Limitations: no limitations - History of Present Illness MD Complaint: shortness of breath, cough, chest pain, "asthma attack", anxiety -: days(s) Severity: moderate Severity scale (1-10): 6 Quality: aching Consistency: constant, intermittent Improves With: nothing Worsens With: nothing Known History Of: COPD <Nabil Corado - Last Filed: 10/20/23 05:38> <Tomy Hernández - Last Filed: 10/20/23 10:17> - General Chief Complaint: Shortness of Breath Stated Complaint: CHARLEE Time Seen by Provider: 10/20/23 04:54 - History of Present Illness Initial Comments: This is a 63-year-old female to the ER today. Patient [place] for evaluation of severe cough and congestion pleurisy and pleuritic pain. Patient has significant chest pain as well. Patient has been on and on to steroid treatments with breathing treatments at home with no improvement in shortness of breath continues to persist was worse this morning no fevers (Nabil Corado) 63-year-old female presents emergency department chief complaint of ongoing shortness of breath, wheezing. She states has been sick since August. Patient states she was seen by urgent care twice she states that she has been doing some breathing treatments at home with no relief denies any history of smoking no history of asthma or COPD denies any chest pain she states that her lungs does feel tight patient states has been on antibiotics along with low-dose steroids. Patient denies any leg pain leg swelling denies follow-up with pulmonology. (Tomy Hernández) - Related Data Home Medications Medication Instructions Recorded Confirmed Losartan [Cozaar] 50 mg PO QAM 12/18/20 01/14/21 Previous Rx's Medication Instructions Recorded traMADol HCL 1 - 2 mg PO Q6HR PRN #10 tablet 01/14/21 Budesonide [Pulmicort Flexhaler] 1 puff INHALATION BID #1 dispenser 10/20/23 Ipratropium-Albuterol Nebulize 3 ml INHALATION QID #25 each 10/20/23 [Duoneb 0.5 mg-3 mg/3 ml Soln] predniSONE 50 mg PO DAILY #5 tab 10/20/23 Allergies Allergy/AdvReac Type Severity Reaction Status Date / Time No Known Allergies Allergy Verified 01/14/21 10:39 Review of Systems ROS Other: All systems not noted in ROS Statement are negative. <Nabil Corado - Last Filed: 10/20/23 05:38> ROS Other: All systems not noted in ROS Statement are negative. <Tomy Hernández - Last Filed: 10/20/23 10:17> ROS Statement: Those systems with pertinent positive or pertinent negative responses have been documented in the HPI. Past Medical History Past Medical History: Hypertension Additional Past Medical History / Comment(s): left breast changes History of Any Multi-Drug Resistant Organisms: None Reported Past Surgical History: Orthopedic Surgery, Tubal Ligation Additional Past Surgical History / Comment(s): left breast bx,right knee surgery 2019 Past Anesthesia/Blood Transfusion Reactions: Motion Sickness Past Psychological History: Anxiety Smoking Status: Former smoker Past Alcohol Use History: None Reported Past Drug Use History: None Reported - Past Family History Father Family Medical History: Cancer Additional Family Medical History / Comment(s): throat cancer <Nabil Corado - Last Filed: 10/20/23 05:38> General Exam Limitations: no limitations General appearance: alert, in no apparent distress Head exam: Present: atraumatic, normocephalic, normal inspection Eye exam: Present: normal appearance, PERRL, EOMI. Absent: scleral icterus, conjunctival injection, periorbital swelling ENT exam: Present: normal exam, mucous membranes moist Neck exam: Present: normal inspection. Absent: tenderness, meningismus, lymphadenopathy Respiratory exam: Present: normal lung sounds bilaterally. Absent: respiratory distress, wheezes, rales, rhonchi, stridor Cardiovascular Exam: Present: regular rate, normal rhythm, normal heart sounds. Absent: systolic murmur, diastolic murmur, rubs, gallop, clicks GI/Abdominal exam: Present: soft, normal bowel sounds. Absent: distended, tenderness, guarding, rebound, rigid Extremities exam: Present: normal inspection, full ROM, normal capillary refill. Absent: tenderness, pedal edema, joint swelling, calf tenderness Back exam: Present: normal inspection Neurological exam: Present: alert, oriented X3, CN II-XII intact Psychiatric exam: Present: normal affect, normal mood Skin exam: Present: warm, dry, intact, normal color. Absent: rash <Nabil Corado - Last Filed: 10/20/23 05:38> General appearance: alert, in no apparent distress ENT exam: Present: normal exam, mucous membranes moist Neck exam: Present: normal inspection. Absent: tenderness, meningismus, lymp hadenopathy Respiratory exam: Present: respiratory distress, wheezes. Absent: normal lung sounds bilaterally, rales, rhonchi, stridor Cardiovascular Exam: Present: regular rate, normal rhythm, normal heart sounds. Absent: systolic murmur, diastolic murmur, rubs, gallop, clicks Extremities exam: Present: normal inspection, full ROM, normal capillary refill. Absent: tenderness, pedal edema, joint swelling, calf tenderness Neurological exam: Present: alert, oriented X3, CN II-XII intact <Tomy Hernández - Last Filed: 10/20/23 10:17> Course <Nabil Corado - Last Filed: 10/20/23 05:38> Vital Signs 10/20/23 10/20/23 10/20/23 04:34 06:17 06:35 Temperature 97.8 F Pulse Rate 71 74 76 Respiratory 18 Rate Blood Pressure 167/88 O2 Sat by Pulse 96 Oximetry 10/20/23 10/20/23 10/20/23 07:22 07:29 07:38 Temperature 98.3 F Pulse Rate 78 86 Respiratory 20 20 Rate Blood Pressure 168/88 O2 Sat by Pulse 95 Oximetry 10/20/23 10/20/23 10/20/23 07:56 09:17 09:41 Temperature Pulse Rate 82 83 82 Respiratory Rate Blood Pressure O2 Sat by Pulse Oximetry 10/20/23 09:46 Temperature 98.2 F Pulse Rate 77 Respiratory 20 Rate Blood Pressure 173/84 O2 Sat by Pulse 95 Oximetry - Reevaluation(s) Reevaluation #1: 10/20/23 05:38 Medical records reviewed (Nabil Corado) Reevaluation #2: 10/20/23 05:39 Patient symptoms improved (Nabil Corado) Reevaluation #3: 10/20/23 05:39 Patient informed of results questions answered (Nabil Corado) Reevaluation #4: Was pt. sent in by a medical professional or institution (TAYLOR Buckley, ALUMNI COORDINATOR, urgent care, hospital, or group home...) When possible be specific @ -no Did you speak to anyone other than the patient for history (EMS, parent, family, police, friend...)? What history was obtained from this source @ -no Did you review nursing and triage notes (agree or disagree)? Why? @ -agree Are old charts reviewed (outside hosp., previous admission, EMS record, old EKG, old radiological studies, urgent care reports/EKG's, group home records)? Report findings @ -yes Differential Diagnosis (chest pain, altered mental status, abdominal pain women, abdominal pain men, vaginal bleeding, weakness, fever, dyspnea, syncope, headache, dizziness, GI bleed, back pain, seizure, CVA, palpatations, mental health, musculoskeletal)? @ -prior EKG interpreted by me (3pts min.). @ -yes X-rays interpreted by me (1pt min.). @ -yes negative for acute disease CT interpreted by me (1pt min.). @ -no U/S interpreted by me (1pt. min.). @ -no What testing was considered but not performed or refused? (CT, X-rays, U/S, labs)? Why? @ -none What meds were considered but not given or refused? Why? @ -none Did you discuss the management of the patient with other professionals (pr ofessionals i.e. TAYLOR Buckley, ALUMNI COORDINATOR, lab, RT, psych nurse, manager social services, carpenter maintenance, teacher, state highway police officer, onsite case manager)? Give summary @ -no Was smoking cessation discussed for >3mins.? @ -no Was critical care preformed (if so, how long)? @ -no Were there social determinants of health that impacted care today? How? (Homelessness, low income, unemployed, alcoholism, drug addiction, transportation, low edu. Level, literacy, decrease access to med. care, shelter, rehab)? @ -none Was there de-escalation of care discussed even if they declined (Discuss DNR or withdrawal of care, Hospice)? DNR status @ -no What co-morbidities impacted this encounter? (DM, HTN, Smoking, COPD, CAD, Cancer, CVA, ARF, Chemo, Hep., AIDS, mental health diagnosis, sleep apnea, morbid obesity)? @ -none Was patient admitted / discharged? Hospital course, mention meds given and route, prescriptions, significant lab abnormalities, going to OR and other pertinent info. @ - Undiagnosed new problem with uncertain prognosis? @ -no Drug Therapy requiring intensive monitoring for toxicity (Heparin, Nitro, Insulin, Cardizem)? @ -no Were any procedures done? @ -no Diagnosis/symptom? @ - Acute, or Chronic, or Acute on Chronic? @ -Acute Uncomplicated (without systemic symptoms) or Complicated (systemic symptoms)? @ -Complicated Side effects of treatment? @ -no Exacerbation, Progression, or Severe Exacerbation? @ -exacerbation Poses a threat to life or bodily function? How? (Chest pain, [place], [place], pneumonia, PE, COPD, DKA, ARF, appy, cholecystitis, CVA, Diverticulitis, Homicidal, Suicidal, threat to staff... and all critical care pts) @ -yes (Nabil Corado) Reevaluation #5: Differential Dyspnea: Coronary syndrome, arrhythmia, tamponade, asthma, COPD, pulmonary embolism, pneumonia, pneumothorax, pulmonary effusion, anaphylaxis, diabetic ketoacidosis, flailed chest, pulmonary contusion, diaphragmatic rupture, anemia, neuromuscular, this is not meant to be an all-inclusive list. (Nabil Corado) Medical Decision Making - Lab Data Result diagrams: 10/20/23 06:05 10/20/23 06:05 - EKG Data -: EKG Interpreted by Me <Tomy Hernández - Last Filed: 10/20/23 10:17> - Medical Decision Making Was pt. sent in by a medical professional or institution (, PA, ALUMNI COORDINATOR, urgent care, hospital, or group home...) When possible be specific @ -No Did you speak to anyone other than the patient for history (EMS, parent, family, police, friend...)? What history was obtained from this source @ -No Did you review nursing and triage notes (agree or disagree)? Why? @ -I reviewed and agree with nursing and triage notes Were old charts reviewed (outside hosp., previous admission, EMS record, old EKG, old radiological studies, urgent care reports/EKG's, group home records)? Report findings @ -No old charts were reviewed Differential Diagnosis (chest pain, altered mental status, abdominal pain women, abdominal pain men, vaginal bleeding, weakness, fever, dyspnea, syncope, heada rambo, dizziness, GI bleed, back pain, seizure, CVA, palpatations, mental health, musculoskeletal)? @ -Differential Dyspnea: Coronary syndrome, arrhythmia, tamponade, asthma, COPD, pulmonary embolism, pneumonia, pneumothorax, pulmonary effusion, anaphylaxis, diabetic ketoacidosis, flailed chest, pulmonary contusion, diaphragmatic rupture, anemia, neuromuscular, this is not meant to be an all-inclusive list. EKG interpreted by me (3pts min.). @ -As above X-rays interpreted by me (1pt min.). @ -Chest X shows no acute cardiopulmonary process. CT interpreted by me (1pt min.). @ -None done U/S interpreted by me (1pt. min.). @ -None done What testing was considered but not performed or refused? (CT, X-rays, U/S, labs)? Why? @ -None What meds were considered but not given or refused? Why? @ -None Did you discuss the management of the patient with other professionals (professionals i.e. , PA, ALUMNI COORDINATOR, lab, RT, psych nurse, manager social services, carpenter maintenance, teacher, state highway police officer, onsite case manager)? Give summary @ -No Was smoking cessation discussed for >3mins.? @ -No Was critical care preformed (if so, how long)? @ -No Were there social determinants of health that impacted care today? How? (Homelessness, low income, unemployed, alcoholism, drug addiction, transportation, low edu. Level, literacy, decrease access to med. care, shelter, rehab)? @ -No Was there de-escalation of care discussed even if they declined (Discuss DNR or withdrawal of care, Hospice)? DNR status @ -No What co-morbidities impacted this encounter? (DM, HTN, Smoking, COPD, CAD, Cancer, CVA, ARF, Chemo, Hep., AIDS, mental health diagnosis, sleep apnea, morbid obesity)? @ -None Was patient admitted / discharged? Hospital course, mention meds given and route, prescriptions, significant lab abnormalities, going to OR and other per tinent info. @ -Did charge patient has amatory pulse ox of 94, patient did have great improvement after multiple breathing treatments, and he will Pulmicort. Patient was discharged on Pulmicort will follow-up with pulmonology and return precautions were discussed. Patient also was discharged on prednisone 50 mg. Patient has no signs of pneumonia would not be given antibiotics at this time. Undiagnosed new problem with uncertain prognosis? @ -No Drug Therapy requiring intensive monitoring for toxicity (Heparin, Nitro, Insulin, Cardizem)? @ -No Were any procedures done? @ -No Diagnosis/symptom? @ -Bronchospasm, acute bronchitis Acute, or Chronic, or Acute on Chronic? @ -Acute Uncomplicated (without systemic symptoms) or Complicated (systemic symptoms)? @ -Complicated Side effects of treatment? @ -No Exacerbation, Progression, or Severe Exacerbation? @ -No Poses a threat to life or bodily function? How? (Chest pain, [place], [place], pneumonia, PE, COPD, DKA, ARF, appy, cholecystitis, CVA, Diverticulitis, Homicidal, Suicidal, threat to staff... and all critical care pts) @ -No (Tomy Hernández) - Lab Data Lab Results 10/20/23 10/20/23 10/20/23 Range/Units 04:37 06:05 06:05 WBC (3.8-10.6) k/uL RBC (3.80-5.40) m/uL Hgb (11.4-16.0) gm/dL Hct (34.0-46.0) % MCV (80.0-100.0) fL MCH (25.0-35.0) pg MCHC (31.0-37.0) g/dL RDW (11.5-15.5) % Plt Count (150-450) k/uL MPV Neutrophils % % Lymphocytes % % Monocytes % % Eosinophils % % Basophils % % Neutrophils # (1.3-7.7) k/uL Lymphocytes # (1.0-4.8) k/uL Monocytes # (0-1.0) k/uL Eosinophils # (0-0.7) k/uL Basophils # (0-0.2) k/uL D-Dimer 0.33 (<0.60) mg/L FEU Sodium 138 (137-145) mmol/L Potassium 4.4 (3.5-5.1) mmol/L Chloride 105 (98-107) mmol/L Carbon Dioxide 29 (22-30) mmol/L Anion Gap 4 mmol/L BUN 25 H (7-17) mg/dL Creatinine 0.66 (0.52-1.04) mg/dL Est GFR (CKD-EPI)AfAm >90 (>60 ml/min/1.73 sqM) Est GFR (CKD-EPI)NonAf >90 (>60 ml/min/1.73 sqM) Glucose 146 H (74-99) mg/dL Calcium 9.0 (8.4-10.2) mg/dL Magnesium 2.0 (1.6-2.3) mg/dL Total Bilirubin 0.4 (0.2-1.3) mg/dL AST 23 (14-36) U/L ALT 25 (4-34) U/L Alkaline Phosphatase 82 (38-126) U/L Troponin I (0.000-0.034) ng/mL NT-Pro-B Natriuret Pep 24 pg/mL Total Protein 7.2 (6.3-8.2) g/dL Albumin 3.9 (3.5-5.0) g/dL Influenza Type A (PCR) Not Detected (Not Detectd) Influenza Type B (PCR) Not Detected (Not Detectd) RSV (PCR) Not Detected (Not Detectd) SARS-CoV-2 (PCR) Not Detected (Not Detectd) 10/20/23 10/20/23 Range/Units 06:05 06:05 WBC 10.2 (3.8-10.6) k/uL RBC 4.75 (3.80-5.40) m/uL Hgb 13.6 (11.4-16.0) gm/dL Hct 42.6 (34.0-46.0) % MCV 89.7 (80.0-100.0) fL MCH 28.6 (25.0-35.0) pg MCHC 31.9 (31.0-37.0) g/dL RDW 14.6 (11.5-15.5) % Plt Count 265 (150-450) k/uL MPV 8.5 Neutrophils % 70 % Lymphocytes % 19 % Monocytes % 5 % Eosinophils % 4 % Basophils % 1 % Neutrophils # 7.2 (1.3-7.7) k/uL Lymphocytes # 1.9 (1.0-4.8) k/uL Monocytes # 0.5 (0-1.0) k/uL Eosinophils # 0.4 (0-0.7) k/uL Basophils # 0.1 (0-0.2) k/uL D-Dimer (<0.60) mg/L FEU Sodium (137-145) mmol/L Potassium (3.5-5.1) mmol/L Chloride (98-107) mmol/L Carbon Dioxide (22-30) mmol/L Anion Gap mmol/L BUN (7-17) mg/dL Creatinine (0.52-1.04) mg/dL Est GFR (CKD-EPI)AfAm (>60 ml/min/1.73 sqM) Est GFR (CKD-EPI)NonAf (>60 ml/min/1.73 sqM) Glucose (74-99) mg/dL Calcium (8.4-10.2) mg/dL Magnesium (1.6-2.3) mg/dL Total Bilirubin (0.2-1.3) mg/dL AST (14-36) U/L ALT (4-34) U/L Alkaline Phosphatase (38-126) U/L Troponin I <0.012 (0.000-0.034) ng/mL NT-Pro-B Natriuret Pep pg/mL Total Protein (6.3-8.2) g/dL Albumin (3.5-5.0) g/dL Influenza Type A (PCR) (Not Detectd) Influenza Type B (PCR) (Not Detectd) RSV (PCR) (Not Detectd) SARS-CoV-2 (PCR) (Not Detectd) - EKG Data EKG Comments: EKG performed at 5: 59 sinus rhythm rate of 68 MA 169 QRS 95 QT/QTc 14/430 (Tomy Hernández) Disposition <Nabil Corado - Last Filed: 10/20/23 05:38> Is patient prescribed a controlled substance at d/c from ED?: No Time of Disposition: 08:35 <Tomy Hernández - Last Filed: 10/20/23 10:17> Clinical Impression: Acute bronchitis with bronchospasm Disposition: HOME SELF-CARE Condition: Stable Instructions (If sedation given, give patient instructions): Acute Bronchitis (ED), Bronchospasm (ED) Additional Instructions: Please return to the Emergency Department if symptoms worsen or any other concerns. Prescriptions: Ipratropium-Albuterol Nebulize [Duoneb 0.5 mg-3 mg/3 ml Soln] 3 ml INHALATION QID #25 each predniSONE 50 mg PO DAILY #5 tab Budesonide [Pulmicort Flexhaler] 1 puff INHALATION BID #1 dispenser Referrals: Kan Molina MD [Primary Care Provider] - 1-2 days Paul Orozco MD [STAFF PHYSICIAN] - 1-2 days
[2023-10-20] MEDS: SODIUM CHLORIDE 0.9% 500 ML 500 ML IV STA (06:16)
[2023-10-20] MEDS: DEXAMETHASONE SOD PHOSPHATE 10 MG/ML 1 ML VIAL IVP STA (06:16)
[2023-10-20] MEDS: IPRATROPIUM-ALBUTEROL 3 ML NEB INHALATION STA ×2 (06:16→07:38)
[2023-10-20 06:39] LABS: Basophils # (A) 0.1 k/uL (0-0.2); Basophils % (A) 1 %; Eosinophils # (A) 0.4 k/uL (0-0.7); Eosinophils % (A) 4 %; HCT 42.6 % (34.0-46.0); HGB 13.6 gm/dL (11.4-16.0); Lymphocytes # (A) 1.9 k/uL (1.0-4.8); Lymphocytes % (A) 19 %; MCH 28.6 pg (25.0-35.0); MCHC 31.9 g/dL (31.0-37.0); MCV 89.7 fL (80.0-100.0); Mean Platelet Volume 8.5; Monocytes # (A) 0.5 k/uL (0-1.0); Monocytes % (A) 5 %; Neutrophils # (A) 7.2 k/uL (1.3-7.7); Neutrophils % (A) 70 %; Platelet Count 265 k/uL (150-450); RBC 4.75 m/uL (3.80-5.40); RDW 14.6 % (11.5-15.5); WBC 10.2 k/uL (3.8-10.6)
[2023-10-20 06:57] LABS: ALT 25 U/L (4-34); AST 23 U/L (14-36); African American GFR (CKD) >90 (>60 ml/min/1.73 sqM); Albumin 3.9 g/dL (3.5-5.0); Alkaline Phosphatase 82 U/L (38-126); Anion Gap 4 mmol/L; Blood Urea Nitrogen 25 mg/dL (7-17); Carbon Dioxide 29 mmol/L (22-30); Chloride 105 mmol/L (98-107); Glucose 146 mg/dL (74-99); Non-African American GFR(CKD) >90 (>60 ml/min/1.73 sqM); Potassium 4.4 mmol/L (3.5-5.1); Sodium 138 mmol/L (137-145); Total Bilirubin 0.4 mg/dL (0.2-1.3); Total Protein 7.2 g/dL (6.3-8.2)
[2023-10-20 07:05] LABS: NT-Pro-B-Type Natriuretic Pept 24 pg/mL
[2023-10-20] MEDS: methylPREDNISolone SOD SUCCI 125 MG/2 ML VIAL IV STA (07:49)
[2023-10-20 08:12] VITALS: RESP 20
[2023-10-20] MEDS: BUDESONIDE 1 MG/2 ML NEBU INHALATION STA (09:15)
[2023-10-20] MEDS: ALBUTEROL NEBULIZED 2.5 MG/3 ML INHALATION STA (09:15)
[2023-10-20 09:50] VITALS: PULSE 77
[2023-10-20 09:51] VITALS: BP 173/84; TEMP 98.2
== END 2023-10-20 10:04 | disposition home or self-care (01) ==
LOC: EC 04:26
DX: J20.9 Acute bronchitis, unspecified (principal); Z87.891 Personal history of nicotine dependence
CPT/HCPCS: 36415; 94640 ×2; 93005; 85379; 83880; 80053; 83735; 84484; 85025; 87636; 71046; 99285; 96374; 96375; J1100; J2919

== ENCOUNTER → 2024-05-13 | Outpatient (CLI) | payer BC ==
--- NOTE | 2024-05-16 08:45 | MM ---
Reason for Exam: Screening (asymptomatic). Last mammogram was performed 1 year(s) and 9 month(s) ago. Patient History: Menarche at age 16. First Full-Term at age 20. Postmenopausal. 01/14/2021, High risk Core Biopsy on the left side. 12/31/2020, High risk Core Biopsy on the left side. Paternal cousin had breast cancer, age 32. Maternal aunt had breast cancer, age 72. Risk Values: Анна 5 year model risk: 1.5%. NCI Lifetime model risk: 7.0%. Prior Study Comparison: 12/11/2020 Left Diagnostic Mammogram, [facility]. 09/09/2021 Left Diagnostic Mammogram, [facility]. 07/22/2022 Bilateral MG diagnostic mammo w CAD [facility], [facility]. Tissue Density: The breasts are heterogeneously dense, which may obscure small masses. Findings: Analyzed By CAD. Right breast: There is no suspicious group of microcalcifications or new suspicious mass. Left breast: There is no suspicious group of microcalcifications or new suspicious mass. Overall Assessment: Negative, BI-RAD 1 Management: Screening Mammogram of both breasts in [address] [facility] will attempt to contact patient to return for supplemental views and ultrasound if indicated. Patient should continue monthly self-breast exams. A clinical breast exam by your physician is recommended on an annual basis. This exam should not preclude additional follow-up of suspicious palpable abnormalities. Note on Анна scores and lifetime risk: 1. A Анна score greater than 3% is considered moderate risk. If this is the case, consider specialist referral to assess eligibility for a risk reducing agent. 2. If overall lifetime risk for the development of breast cancer is 20% or higher, the patient may qualify for future screening with alternating mammogram and breast MRI. [facility], , 05/16/2024 8:42 AM. Electronically signed and approved by: Panfilo Swenson DO
== END | disposition home or self-care (01) ==
LOC: RADMAMWWP 11:26
PROVIDERS: ATTEND Family Medicine
DX: Z12.31 Encounter for screening mammogram for malignant neoplasm of breast (principal); Z78.0 Asymptomatic menopausal state; Z80.3 Family history of malignant neoplasm of breast; R92.333 Mammographic heterogeneous density, bilateral breasts
CPT/HCPCS: 77063; 77067